=== PATIENT | female | born 1990 | race Caucasian/White ===

== ENCOUNTER 2017-07-20 19:11 | Emergency (ER) | payer MEDICAID, OTHER ==
[2017-07-20 19:35] VITALS: BP 113/74; PULSE 82; RESP 20; TEMP 98.1; O2SAT 93
[2017-07-20] MEDS ORDERED: ONDANSETRON HCL 4 MG TAB PO ONE (20:15)
[2017-07-20] MEDS ORDERED: ONDANSETRON 4 MG ODT ONE (20:22)
[2017-07-20] MEDS ORDERED: ONDANSETRON 4 MG ODT BU ONE (20:24)
[2017-07-20 20:29] LABS: BASOPHILS % (AUTO) 1 % (0-3); EOSINOPHILS % (AUTO) 1 % (0-9); HEMATOCRIT 37 % (35-47); MEAN CORPUSCULAR HGB CONC 34.3 gm/dl (32.0-36.0); MEAN CORPUSCULAR VOLUME 86 fL (81-99); MONOCYTES % (AUTO) 8.6 % (0-12); NEUTROPHILS % (AUTO) 69.7 % (37-80)
[2017-07-20 20:47] LABS: ALBUMIN 3.9 gm/dl (3.4-5.0); CALCIUM 8.6 mg/dl (8.5-10.1); POTASSIUM 3.5 mMol/L (3.5-5.1)
== END 2017-07-20 20:56 | disposition home or self-care (01) | DRG 781 ==
LOC: ED 19:11
DX: O21.9 Vomiting of pregnancy, unspecified (principal); Z3A.01 Less than 8 weeks gestation of pregnancy
CPT/HCPCS: 80053; 85025; 99282; A9270-GY

== ENCOUNTER 2017-10-08 18:06 | Emergency (ER) | payer MEDICAID ==
[2017-10-08] MEDS ORDERED: LORAZEPAM 2 MG/ML SOL IM ONE (18:45)
[2017-10-08 19:28] VITALS: TEMP 96.7
[2017-10-08 19:30] VITALS: BP 132/78; PULSE 85; RESP 16; O2SAT 100
== END 2017-10-08 19:10 | disposition home or self-care (01) | DRG 781 ==
LOC: ED 18:06
DX: O99.342 Other mental disorders complicating pregnancy, second trimester (principal); F41.9 Anxiety disorder, unspecified; Z3A.17 17 weeks gestation of pregnancy
CPT/HCPCS: 99282

== ENCOUNTER 2017-12-23 16:53 | Emergency (ER) | payer MEDICAID ==
[2017-12-23 17:16] VITALS: RESP 20
[2017-12-23 17:32] LABS: APPEARANCE,URINE Slightly Cloudy; BILIRUBIN,URINE NEGATIVE (NEGATIVE); COLOR,URINE Yellow; GLUCOSE, URINE (UA) NEGATIVE (NEGATIVE); KETONES,URINE NEGATIVE (NEGATIVE); LEUKOCYTE ESTERASE ,URINE NEGATIVE (NEGATIVE); NITRATE,URINE NEGATIVE (NEGATIVE); OCCULT BLOOD,URINE 2+ (NEG-TRACE)
[2017-12-23 17:51] LABS: BACTERIA 1+ (< 1+); CRYSTALS 3+ AMORPH URATES (0-3 AVE/HPF); RBC,URINE 40-50 (0-3AV/HPF); WBC,URINE 0-2 (0-5AV/HPF)
[2017-12-23 18:26] VITALS: TEMP 98.2; O2SAT 100
[2017-12-23 18:43] VITALS: BP 118/68; PULSE 74
== END 2017-12-23 18:55 | disposition home or self-care (01) | DRG 696 ==
LOC: ED 16:53
DX: R39.15 Urgency of urination (principal); O26.893 Other specified pregnancy related conditions, third trimester; Z3A.28 28 weeks gestation of pregnancy
CPT/HCPCS: 59025; 81001; 99282; 99283

== ENCOUNTER 2018-03-11 14:31 | Observation (INO) | payer MEDICAID ==
[2018-03-05 14:52] VITALS: O2SAT 98
[2018-03-11 15:03] VITALS: BP 132/82; PULSE 90; RESP 18; TEMP 96.3
== END 2018-03-11 16:15 | disposition home or self-care (01) | DRG 833 ==
LOC: OB 14:31
PROVIDERS: ADMIT Emergency Medicine; ATTEND Emergency Medicine
DX: O47.1 False labor at or after 37 completed weeks of gestation (principal); Z3A.39 39 weeks gestation of pregnancy
CPT/HCPCS: 59025; 84112

== ENCOUNTER 2018-03-11 21:55 | Inpatient (IN) | payer MEDICAID ==
[2018-03-11] MEDS: SODIUM CHLORIDE 0.9% FLUSH 10 ML SOL IV SCH (22:55)
[2018-03-11] MEDS ORDERED: LACTATED RINGERS 1,000 ML IV PRN (23:03)
[2018-03-11] MEDS ORDERED: SODIUM CHLORIDE 0.9% FLUSH 10 ML SOL IV PRN (23:03)
[2018-03-11] MEDS ORDERED: CARBOPROST 250 MCG/ML SOL IM PRN (23:03)
[2018-03-11] MEDS ORDERED: OXYTOCIN 10000 MU/ML SOL IM PRN (23:03)
[2018-03-11] MEDS ORDERED: MEPIVACAINE HCL 1% MPF 30 ML/VIAL SOL INFIL PRN (23:03)
[2018-03-11] MEDS ORDERED: FENTANYL 100MCG/2ML SOL IV PRN (23:03)
[2018-03-11] MEDS ORDERED: METHYLERGONOVINE MALEATE 0.2 MG/ML SOL IM PRN (23:03)
[2018-03-11 23:12] LABS: BASOPHILS % (AUTO) 0 % (0-3); EOSINOPHILS % (AUTO) 1 % (0-9); HEMATOCRIT 33 % (35-47); HEMOGLOBIN 11.2 gm/dl (12.0-15.5); MEAN CORPUSCULAR HEMOGLOBIN 31.3 pg (27.0-32.0); MEAN CORPUSCULAR HGB CONC 33.8 gm/dl (32.0-36.0); MEAN CORPUSCULAR VOLUME 93 fL (81-99); MONOCYTES % (AUTO) 6.7 % (0-12); NEUTROPHILS % (AUTO) 72.2 % (37-80)
[2018-03-12] MEDS: SODIUM CHLORIDE 0.9% FLUSH 10 ML SOL IV SCH ×3 (06:49→22:20)
[2018-03-12] MEDS ORDERED: TERBUTALINE SULFATE 1 MG/ML SOL SC PRN (07:40)
[2018-03-12] MEDS ORDERED: LACTATED RINGERS 1,000 ML IV SCH (07:45)
[2018-03-12] MEDS ORDERED: OXYTOCIN 10000 MU/ML 20,000 MU in LACTATED RINGERS 1,000 ML IV SCH (07:45)
[2018-03-12] MEDS ORDERED: DIPHENHYDRAMINE 50 MG/ML SOL IV PRN (15:00)
[2018-03-12] MEDS ORDERED: NALBUPHINE HCL 20 MG/ML SOL IV PRN (15:00)
[2018-03-12] MEDS ORDERED: EPHEDRINE SULFATE 50 MG/ML SOL IV PRN (15:00)
[2018-03-12] MEDS ORDERED: NALOXONE HYDROCHLORIDE 0.4 MG/ML SOL IV PRN (15:00)
[2018-03-12] MEDS: LACTATED RINGERS 1,000 ML IV SCH ×3 (15:04→18:41)
[2018-03-12] MEDS ORDERED: FENTANYL 250 MCG/ 5ML SOL ONE (15:17)
[2018-03-12] MEDS ORDERED: ROPIVACAINE HYDROCHLORIDE 5 MG/ML SOL ONE (15:18)
[2018-03-12] MEDS ORDERED: LIDOCAINE HCL 2% MPF 10 ML SOL ONE (15:18)
[2018-03-12] MEDS ORDERED: BISACODYL 10 MG SUP PR PRN (23:45)
[2018-03-12] MEDS ORDERED: APAP/HYDROCODONE 325/5 TAB PO PRN (23:45)
[2018-03-12] MEDS ORDERED: TEMAZEPAM 15MG 15 MG CAP PO PRN (23:45)
[2018-03-12] MEDS ORDERED: FLEET ENEMA PR PRN (23:45)
[2018-03-12] MEDS ORDERED: METHYLERGONOVINE MALEATE 0.2 MG TAB PO PRN (23:45)
[2018-03-12] MEDS ORDERED: BENZOCAINE/MENTHOL 1 SPR TOP PRN (23:45)
[2018-03-13] MEDS: IBUPROFEN 600 MG TAB PO PRN ×4 (00:14→20:56)
[2018-03-13] MEDS: WITCH HAZEL 1 EA PAD TOP PRN ×6 (00:20→20:57)
[2018-03-13] MEDS: LACTATED RINGERS 1,000 ML IV SCH (04:54)
[2018-03-13] MEDS: SODIUM CHLORIDE 0.9% FLUSH 10 ML SOL IV SCH (06:50)
[2018-03-13] MEDS: DOCUSATE SODIUM 100 MG SGL PO SCH ×2 (08:40→20:56)
[2018-03-13 09:04] LABS: ABO O
[2018-03-13 09:24] LABS: RH TYPE Negative
[2018-03-13 20:41] LABS: APPEARANCE,URINE Slightly Cloudy; BILIRUBIN,URINE NEGATIVE (NEGATIVE); COLOR,URINE Yellow; GLUCOSE, URINE (UA) NEGATIVE (NEGATIVE); KETONES,URINE TRACE (NEGATIVE); LEUKOCYTE ESTERASE ,URINE NEGATIVE (NEGATIVE); NITRATE,URINE NEGATIVE (NEGATIVE); OCCULT BLOOD,URINE TRACE INTACT (NEG-TRACE); PH,URINE 7.5
[2018-03-13 20:48] LABS: BACTERIA 2+ (< 1+); CRYSTALS 1+ AMRPH PHOSPHATES (0-3 AVE/HPF); EPITHELIAL CELLS 0-3 (SQUAMOUS)
[2018-03-13] MEDS ORDERED: CIPROFLOXACIN HCL 500 MG TAB PO ONE (22:53)
[2018-03-13] MEDS: CIPROFLOXACIN HCL 500 MG TAB PO SCH (22:57)
[2018-03-14] MEDS: IBUPROFEN 600 MG TAB PO PRN ×3 (07:38→22:24)
[2018-03-14] MEDS ORDERED: CIPROFLOXACIN HCL 500 MG TAB PO ONE ×2 (10:09→22:06)
[2018-03-14] MEDS: DOCUSATE SODIUM 100 MG SGL PO SCH ×2 (10:16→22:24)
[2018-03-14] MEDS: CIPROFLOXACIN HCL 500 MG TAB PO SCH ×2 (10:16→22:24)
[2018-03-14] MEDS ORDERED: DOCUSATE SODIUM 100 MG SGL ONE (22:05)
[2018-03-14] MEDS ORDERED: IBUPROFEN 600 MG TAB ONE (22:06)
[2018-03-15] MEDS: IBUPROFEN 600 MG TAB PO PRN ×2 (04:13→11:44)
[2018-03-15 07:24] VITALS: BP 125/83; PULSE 67; RESP 12; TEMP 98.1; O2SAT 97
[2018-03-15] MEDS: DOCUSATE SODIUM 100 MG SGL PO SCH (08:32)
[2018-03-15] MEDS ORDERED: INFLUENZA VIRUS VACCINE 0.5 ML SUS IM ONE (09:42)
[2018-03-15] MEDS ORDERED: CIPROFLOXACIN HCL 500 MG TAB PO ONE (11:41)
[2018-03-15] MEDS: CIPROFLOXACIN HCL 500 MG TAB PO SCH (11:44)
== END 2018-03-15 13:50 | disposition home or self-care (01) | DRG 807 ==
LOC: OBSVTOIN 21:55 → OB 21:55
PROVIDERS: ADMIT Family Medicine; ATTEND Family Medicine
PROC: 10E0XZZ Delivery of Products of Conception, External Approach (ICD-10-PCS; principal; 2018-03-13)
PROC: 0KQM0ZZ Repair Perineum Muscle, Open Approach (ICD-10-PCS; 2018-03-13)
PROC: 6A550ZT Pheresis of Cord Blood Stem Cells, Single (ICD-10-PCS; 2018-03-13)
DX: O80 Encounter for full-term uncomplicated delivery (principal); Z37.0 Single live birth; Z3A.39 39 weeks gestation of pregnancy; R33.9 Retention of urine, unspecified
CPT/HCPCS: 51798; 59025; 81001; 84112; 85018; 85025; 86900; 86901; 87077; 87088; 87186; 90686; J0670; J2590; J2795; J3010; J3105; A9270-GY; G0008